=== PATIENT | female | born 1965 | race Two or more races ===

== ENCOUNTER 2019-02-16 19:40 | Emergency (ER) | payer SELFPAY ==
[~2019-02-16] VITALS: Ht 167.6 cm; Wt 81.6 kg
[2019-02-16 19:59] VITALS: BP 120/73
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
[2019-02-16] MEDS ORDERED: traMADol 50mg tab ORAL ONE (20:30)
[2019-02-16] MEDS ORDERED: Methocarbamol 500mg tab ORAL ONE (20:30)
[2019-02-16] MEDS ORDERED: TRAMADOL HCL50 MG ORAL (21:15)
[2019-02-16] MEDS ORDERED: TYLENOL325 MG ORAL (21:15)
[2019-02-16] MEDS ORDERED: ROBAXIN-500MG ORAL (21:15)
[2019-02-16 21:21] VITALS: BP 120/73
--- NOTE | 2019-02-16 21:22 | NUR ---
ED Nurse Note: Pt cleared by health care Provider for discharge. DC instructions/prescription was given and explained to pt and verbalized understanding of teachings. All medical deviecs such as ID band removed. Pt is AAO x4, ambulatory and left with all personal belongings.
--- NOTE | 2019-02-16 23:22 | Diagnostic Imaging Report ---
EXAM: XR Cervical Spine, 2 or 3 Views CLINICAL HISTORY: TRAUMA TECHNIQUE: Frontal and lateral views of the cervical spine. COMPARISON: No relevant prior studies available. FINDINGS: Vertebrae: Study limited due to suboptimal visualization of the odontoid tip. Cervical spine straightening, which could be secondary to patient positioning or muscle spasm. Severe osteopenia. No definite fracture. Normal alignment. Disc spaces: C5-C6 ACDF hardware with interbody spacer. Soft tissues: Unremarkable. IMPRESSION: 1. Study limited due to suboptimal visualization of the odontoid tip. 2. No acute abnormality definitively identified. 3. If there is continued concern, recommend cross-sectional imaging. 4. C5-C6 ACDF hardware with interbody spacer. 5. Cervical spine straightening, which could be secondary to patient positioning or muscle spasm. 6. Severe osteopenia.
== END 2019-02-16 21:20 | disposition home or self-care (01) ==
LOC: EMR 21:15
DX: S13.4XXA Sprain of ligaments of cervical spine, initial encounter (principal); S39.012A Strain of muscle, fascia and tendon of lower back, initial encounter; S80.00XA Contusion of unspecified knee, initial encounter; Z98.1 Arthrodesis status; V43.62XA Car passenger injured in collision with other type car in traffic accident, initial encounter; Y92.411 Interstate highway as the place of occurrence of the external cause
CPT/HCPCS: 72040; 99283

== ENCOUNTER 2020-06-29 11:48 | Emergency (ER) | payer SELFPAY ==
[~2020-06-29] VITALS: Ht 167.6 cm; Wt 77.1 kg
[~2020-06-29 11:48] MED LIST: ROBAXIN-500MG ORAL; TRAMADOL HCL50 MG ORAL; TYLENOL325 MG ORAL
[2020-06-29 12:21] VITALS: BP 121/77
--- NOTE | 2020-06-29 12:25 | NUR ---
ED Nurse Note: pt stated that her left knee started aching and burning yesterday. she stated he hurts worse when she walks. pt also stated that her right shoulder has been hurting for 2 months. she has trouble extending her right arm out.
--- NOTE | 2020-06-29 12:28 | Emergency Room Report ---
History of Present Illness General Chief Complaint: Pain Source: Patient Present Illness HPI Disclaimer: Please note that this report is being documented using DRAGON technology. This can lead to erroneous entry secondary to incorrect interpretation by the dictating instrument. HPI: 54-year-old female presents for evaluation of arm and leg pain. Symptoms began 2 weeks ago. The patient noted pain over the right bicep that she describes as a sharp pain with movement. Denies numbness or tingling or weakness. History of spinal stenosis with cervical fixation. Yesterday she also found some pain over the lateral aspect of the left knee. Denies pain or swelling. She described this as a burning. Comes and goes. Denies numbness or tingling or weakness in the lower extremities. Passing urine without difficulty. Ambulating with steady gait. Has full range of motion. Tried ibuprofen Tylenol last night. Denies history of osteoarthritis, rheumatoid arthritis, gout or other inflammatory or rheumatic disease. 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 EOMI. Resp: Normal work of breathing Skin: Intact. No abrasions, laceration or rash over the exposed skin MSK: Normal tone and bulk. Moving all extremities. No obvious deformity. Mild tenderness palpation over the proximal fibula. Patella in anatomic position. No effusion. Full range of motion. No palpable mass in the popliteal fossa. Full range of motion upper extremities. Pain exhibited with movement of the right shoulder past 90 degrees. Tenderness palpation over the distribution of the trapezius. Neuro: Awake and alert. Mentating appropriately Medical Decision Making Diagnostic Impression: Primary Impression: Back strain Additional Impression: Knee pain ER Course 54-year-old female presenting for evaluation of atraumatic shoulder and knee pain. Regarding the patient's shoulder pain may be radiculopathy secondary to spasm. She has a history of cervical fixation and cervical spine and notes pain shooting from the right side of the neck and upper shoulder down the right arm. Neurologically intact. Good range of motion. No trauma. Do not believe she requires emergent imaging of this region. Will treat with lidocaine patches, Robaxin, continued NSAIDs. Regarding her knee pain the patient has full range of motion no palpable mass and otherwise well-appearing. Likely a ligamentous overuse injury. Continue NSAIDs and RICE therapy. Will refer to PMD. Instructed to return new or worsening symptoms. Last Vital Signs Date Time Temp Pulse Resp B/P (MAP) Pulse Ox O2 Delivery O2 Flow Rate FiO2 06/29/20 12:21 99.0 20 121/77 95 Room Air 06/29/20 12:06 59 Disposition: HOME, SELF-CARE Condition: Stable Scripts Lidocaine Patch* (Lidoderm Patch*) 1 Each Adh..patch 1 PATCH TOPIC DAILY, #30 PATCH Patch(es) may remain in place for up to 12 hours in any 24-hour period. Prov: Bharat Tobias MD 06/29/20 Methocarbamol* (ROBAXIN-750*) 750 Mg Tablet 750 MG PO TID, #21 TAB 0 Refills Prov: Bharat Tobias MD 06/29/20 Ibuprofen* (MOTRIN*) 600 Mg Tablet 600 MG ORAL Q6H PRN for For Pain, #30 TAB 0 Refills Prov: Bharat Tobias MD 06/29/20 Bharat Tobias MD Jun 29, 2020 12:28
[2020-06-29] MEDS ORDERED: LIDODERM700 M1 TOPIC (12:41)
[2020-06-29] MEDS ORDERED: ROBAXIN-750750 MG PO (12:41)
[2020-06-29] MEDS ORDERED: IBUPROFEN600 M1 ORAL (12:41)
--- NOTE | 2020-06-29 12:47 | NUR ---
ER DISCHARGE NOTE: Patient is cleared to be discharged per ERMD, pt is aox4, on room air, with stable vital signs. pt was given dc and prescription instructions, pt was able to verbalize understanding, wrapped shruti around pt's left knee. pt is able to ambulate with steady gait. pt took all belongings.
== END 2020-06-29 12:50 | disposition home or self-care (01) ==
LOC: EMR 12:25
DX: M25.562 Pain in left knee (principal); S39.012A Strain of muscle, fascia and tendon of lower back, initial encounter; X58.XXXA Exposure to other specified factors, initial encounter; Y92.9 Unspecified place or not applicable; M25.511 Pain in right shoulder
CPT/HCPCS: 99282